=== PATIENT | male | born 1935 | race Caucasian/White ===

== ENCOUNTER 2021-06-08 14:35 | Inpatient (IN) | payer MEDICARE, MEDICAID ==
[~2021-06-08] VITALS: Ht 170.2 cm; Wt 65.4 kg
[2021-06-08] MEDS ORDERED: SODIUM CHLORIDE 0.9% 1,000 ML IV ONE ×2 (14:45→18:30)
[2021-06-08] MEDS ORDERED: ONDANSETRON HCL 4MG/2ML INJ IV STA ×2 (14:52→16:16)
[2021-06-08 15:34] LABS: BASOPHILS % 0.3 % (0.0-2.0); EOSINOPHILS % 0.2 % (0.0-5.0); HEMATOCRIT. 51.7 % (42.0-52.0); HEMOGLOBIN. 16.1 g/dL (14.0-18.0); LYMPHOCYTES % 9.5 % (20.0-50.0); MEAN CORPUSCULAR HEMOGLOBIN 29.3 pg (28.0-32.0); MEAN PLATELET VOLUME 9.3 fl (7.4-10.4); MONOCYTES % 3.3 % (2.0-8.0); NEUTROPHILS % 86.7 % (40.0-76.0); PLATELET 175 x1000/uL (130-400); RED CELL DISTRIBUTION WIDTH 15.7 % (11.6-14.6)
[2021-06-08 15:40] LABS: CHLORIDE 109 mEq/L (98-107)
[2021-06-08] MEDS ORDERED: MORPHINE SULFATE 4 MG/ML CPJ (NOT FOR IM USE) IV STA (16:16)
[2021-06-08] MEDS ORDERED: FENTANYL CITRATE/PF 50MCG/ML 2ML VIAL IV ONE (18:30)
[2021-06-08] MEDS ORDERED: ACETAMINOPHEN 650MG SUPP PR PRN (20:00)
[2021-06-08] MEDS ORDERED: ONDANSETRON HCL 4MG/2ML INJ IV PRN (20:00)
[2021-06-08] MEDS ORDERED: PIPERACILLIN/TAZ 3.375G PREMIX 50 ML IV NR (20:15)
[2021-06-08] MEDS: HYDROMORPHONE HCL/PF 2MG/ML CPJ IV PRN (20:36)
[2021-06-08] MEDS ORDERED: METOPROLOL TARTRATE 5MG/5ML VIAL IV NR (21:00)
[2021-06-08] MEDS ORDERED: IOHEXOL-300 100 ML BOTTLE ONE (21:33)
[2021-06-08] MEDS: PANTOPRAZOLE SODIUM 40 MG/VIAL IV SCH (22:16)
[2021-06-08] MEDS: ENOXAPARIN 30MG/0.3ML SYR SUBCUT SCH (22:17)
[2021-06-08] MEDS: DEXT 5%/0.45% NACL 1000ML 1,000 ML IV SCH (22:21)
[2021-06-09] VITALS (90 sets, daily range): BP systolic 40–169; BP diastolic 15–104
[2021-06-09] MEDS ORDERED: NALOXONE HCL 0.4 MG/ML 1ML VIAL IV PRN ×2 (01:15→04:15)
[2021-06-09] MEDS ORDERED: SODIUM CHLORIDE 0.9% 500 ML IV SCH (01:15)
[2021-06-09] MEDS: HYDROMORPHONE HCL/PF 2MG/ML CPJ IV PRN (02:22)
[2021-06-09] MEDS ORDERED: SIMV-43 PO (02:41)
[2021-06-09] MEDS ORDERED: DILT60TA35 PO (02:41)
[2021-06-09] MEDS ORDERED: TAMS-11 PO (02:41)
[2021-06-09] MEDS ORDERED: LEVO25TA7 PO (02:41)
[2021-06-09] MEDS ORDERED: XAR15 PO (02:41)
[2021-06-09] MEDS ORDERED: FINA5TAB11 PO (02:41)
[2021-06-09] MEDS ORDERED: HYDROMORPHONE HCL/PF 2MG/ML CPJ IV PRN (06:00)
[2021-06-09] MEDS ORDERED: PIPERACILLIN/TAZOBACTAM 3.375 G in DEXTROSE 5% WATER 50 ML IV SCH (06:00)
[2021-06-09] MEDS ORDERED: IPRATROPIUM/ALBUTEROL 0.5-3(2.5)MG/3ML NEB HHN SCH (06:00)
[2021-06-09] MEDS ORDERED: IPRATROPIUM/ALBUTEROL 0.5-3(2.5)MG/3ML NEB HHN PRN (06:15)
[2021-06-09] MEDS ORDERED: MORPHINE SULFATE 2 MG/ML CPJ (NOT FOR IM USE) IV PRN (07:00)
[2021-06-09] MEDS: NOREPINEPHRINE 32 MG in DEXT 5% WATER 218 ML IV PRN (08:35)
[2021-06-09] MEDS: PANTOPRAZOLE SODIUM 40 MG/VIAL IV SCH (09:01)
[2021-06-09] MEDS: DEXT 5%/0.45% NACL 1000ML 1,000 ML IV SCH ×2 (09:01→22:26)
[2021-06-09] MEDS ORDERED: DIGOXIN 500MCG/2ML AMP IV NR ×2 (11:15→15:45)
[2021-06-09] MEDS ORDERED: PHENYLEPHRINE 50 MG in DEXT 5% WATER 245 ML IV PRN (12:30)
[2021-06-09 12:58] LABS: HEMATOCRIT. 58.9 % (42.0-52.0); HEMOGLOBIN. 16.5 g/dL (14.0-18.0); MEAN CORPUSCULAR HEMOGLOBIN 29.4 pg (28.0-32.0); MEAN CORPUSCULAR VOLUME 105.1 fL (80.0-94.0); MEAN PLATELET VOLUME 9.4 fl (7.4-10.4); PLATELET 159 x1000/uL (130-400); RED CELL DISTRIBUTION WIDTH 17.7 % (11.6-14.6)
[2021-06-09] MEDS ORDERED: DIGOXIN 500MCG/2ML AMP IV SCH ×2 (13:00→18:00)
[2021-06-09] MEDS: MORPHINE SULFATE 2 MG/ML CPJ (NOT FOR IM USE) IV PRN ×2 (13:03→20:42)
[2021-06-09 14:18] LABS: NUCLEATED RED BLOOD CELLS 1 /100 WBC; PLATELET ESTIMATE NORMAL
[2021-06-09 14:40] LABS: BG DEOXYHEMOGLOBIN 13.7 % (0.0-5.0); BG FRACTION INSPIRED OXYGEN 60; BG HCO3 ACT 16.5 mmol/L (22.0-26.0); BG METHEMOGLOBIN 0.4 % (0.0-1.5); BG OXYGEN SATURATION 86.1 % (92.0-98.5); BG OXYHEMOGLOBIN 84.9 % (94.0-97.0); BG PCO2 51.3 mmHg (35.0-45.0); BG PH 7.126 (7.350-7.450); BG PO2 54.2 mmHg (75.0-100.0); BG TOTAL HEMOGLOBIN 16.5 g/dL (12.0-18.0); BG VENT MODE MASK - SIMPLE
[2021-06-09] MEDS ORDERED: SODIUM BICARBONATE 8.4% 1 MEQ/ML 50ML SYR IV NR (14:45)
[2021-06-09] MEDS ORDERED: METHYLPREDNISOLONE SOD SUCC 125 MG/2 ML VIAL IV NR (14:45)
[2021-06-09] MEDS: PIPERACILLIN/TAZOBACTAM 3.375G in DEXT 5% WATER 50ML IV SCH ×2 (14:53→21:11)
[2021-06-09 16:16] LABS: HEMATOCRIT. 49.8 % (42.0-52.0); HEMOGLOBIN. 15.3 g/dL (14.0-18.0); MEAN CORPUSCULAR HEMOGLOBIN 29.5 pg (28.0-32.0); MEAN CORPUSCULAR VOLUME 96.1 fL (80.0-94.0); MEAN PLATELET VOLUME 9.6 fl (7.4-10.4); PLATELET 162 x1000/uL (130-400); RED BLOOD CELL COUNT 5.18 mill/uL (4.7-6.1); RED CELL DISTRIBUTION WIDTH 16.4 % (11.6-14.6)
[2021-06-09 16:37] LABS: CHLORIDE 110 mEq/L (98-107)
[2021-06-09] MEDS: IPRATROPIUM/ALBUTEROL 0.5-3(2.5)MG/3ML NEB HHN SCH ×2 (17:41→20:29)
[2021-06-09 18:46] LABS: PLATELET ESTIMATE NORMAL
[2021-06-09] MEDS ORDERED: ACETAMINOPHEN 650MG SUPP PR PRN (19:45)
[2021-06-09] MEDS: ENOXAPARIN 30MG/0.3ML SYR SUBCUT SCH ×2 (20:20→20:26)
[2021-06-09] MEDS: METHYLPREDNISOLONE SOD SUCC 40 MG/ML VIAL IV SCH (21:11)
[2021-06-09 21:40] LABS: CLARITY URINE TURBID (CLEAR); COLOR URINE RED (YELLOW); KETONES URINE TRACE (NEGATIVE); LEUKOCYTE ESTERASE URINE TRACE (NEGATIVE); NITRITE URINE NEGATIVE (NEGATIVE); OCCULT BLOOD URINE 3+ (NEGATIVE); PROTEIN URINE 2+ (NEGATIVE); SPECIFIC GRAVITY URINE 1.044 (1.005-1.030)
[2021-06-10] VITALS (43 sets, daily range): BP systolic 50–160; BP diastolic 13–81
[2021-06-10] MEDS: IPRATROPIUM/ALBUTEROL 0.5-3(2.5)MG/3ML NEB HHN SCH ×4 (01:10→12:31)
[2021-06-10] MEDS: MORPHINE SULFATE 2 MG/ML CPJ (NOT FOR IM USE) IV PRN (01:26)
[2021-06-10 05:12] LABS: BASOPHILS % 0.2 % (0.0-2.0); EOSINOPHILS % 0.2 % (0.0-5.0); HEMOGLOBIN. 15.8 g/dL (14.0-18.0); LYMPHOCYTES % 9.6 % (20.0-50.0); MEAN CORPUSCULAR HEMOGLOBIN 29.4 pg (28.0-32.0); MEAN PLATELET VOLUME 9.6 fl (7.4-10.4); MONOCYTES % 11.4 % (2.0-8.0); NEUTROPHILS % 78.6 % (40.0-76.0); PLATELET 113 x1000/uL (130-400); RED BLOOD CELL COUNT 5.36 mill/uL (4.7-6.1); RED CELL DISTRIBUTION WIDTH 16.6 % (11.6-14.6)
[2021-06-10] MEDS: PIPERACILLIN/TAZOBACTAM 3.375G in DEXT 5% WATER 50ML IV SCH (05:24)
[2021-06-10] MEDS: METHYLPREDNISOLONE SOD SUCC 40 MG/ML VIAL IV SCH (05:24)
[2021-06-10] MEDS: NOREPINEPHRINE 32 MG in DEXT 5% WATER 218 ML IV PRN (05:33)
[2021-06-10] MEDS ORDERED: LIDOCAINE HCL 1% 10 MG/ML 10ML VIAL ONE (08:49)
[2021-06-10] MEDS: PANTOPRAZOLE SODIUM 40 MG/VIAL IV SCH (10:22)
[2021-06-10] MEDS: DEXT 5%/0.45% NACL 1000ML 1,000 ML IV SCH (11:29)
[2021-06-10] MEDS ORDERED: PIPERACILLIN/TAZOBACTAM 3.375 G in DEXTROSE 5% WATER 50 ML IV SCH (21:00)
== END 2021-06-10 14:05 | DRG 388 ==
LOC: ER 14:35 → EDBEDREQTM 19:16 → EDBEDREQ 19:16 → ENRESERV 23:14 → 8WST 06-09 02:06 → MICUNO 06-09 05:00
PROVIDERS: ADMIT Hospitalist; ATTEND Hospitalist
PROC: 0D9670Z Drainage of Stomach with Drainage Device, Via Natural or Artificial Opening (ICD-10-PCS; principal; 2021-06-09)
PROC: 5A0935A Assistance with Respiratory Ventilation, Less than 24 Consecutive Hours, High Flow/Velocity Cannula (ICD-10-PCS; 2021-06-09)
PROC: 02HV33Z Insertion of Infusion Device into Superior Vena Cava, Percutaneous Approach (ICD-10-PCS; 2021-06-10)
PROC: B548ZZA Ultrasonography of Superior Vena Cava, Guidance (ICD-10-PCS; 2021-06-10)
DX: K56.609 Unspecified intestinal obstruction, unspecified as to partial versus complete obstruction (principal); J96.01 Acute respiratory failure with hypoxia; E43 Unspecified severe protein-calorie malnutrition; J96.02 Acute respiratory failure with hypercapnia; E87.4 Mixed disorder of acid-base balance; I48.19 Other persistent atrial fibrillation; N17.9 Acute kidney failure, unspecified; R57.9 Shock, unspecified; Z66 Do not resuscitate; E03.9 Hypothyroidism, unspecified; I11.0 Hypertensive heart disease with heart failure; E88.09 Other disorders of plasma-protein metabolism, not elsewhere classified; E78.5 Hyperlipidemia, unspecified; Z60.2 Problems related to living alone; I25.10 Atherosclerotic heart disease of native coronary artery without angina pectoris; I50.9 Heart failure, unspecified; Z79.01 Long term (current) use of anticoagulants; Z85.048 Personal history of other malignant neoplasm of rectum, rectosigmoid junction, and anus; Z85.46 Personal history of malignant neoplasm of prostate; Z92.3 Personal history of irradiation; Z79.899 Other long term (current) drug therapy; Z87.891 Personal history of nicotine dependence; Z68.22 Body mass index [BMI] 22.0-22.9, adult; J44.9 Chronic obstructive pulmonary disease, unspecified
CPT/HCPCS: 36415; 36600; 71045; 74018; 74177; 76937; 80048; 80053; 81003; 82375; 82805; 83605; 83735; 84443; 84484; 85025; 93005; 93306; 93970; 99285; C1725; C9113; J1160; J1170; J1650; J2270; J2310; J2370; J2405; J2543; J2920; J2930; J3010; J3490; J7030; J7060; Q9967; A4315